=== PATIENT | female | born 1955 | race Caucasian/White ===

== ENCOUNTER 2018-05-03 15:44 | Emergency (ER) ==
[2018-05-03 15:50] VITALS: BP 221/117; TEMP 98.2; BMI 28.3
--- NOTE | 2018-05-03 15:54 | ED.PDOC ---
General ED Provider: Dr. RACHEL GALARZA Chief Complaint: Shortness of Air Stated Complaint: Shortness of breath and chest pain. Having trouble taking full breath; Pain sharp and stabbing. States had similar problem in [facility] 2 weeks ago and required ER treatment then. Dx COPD /Reflux. Was here on vacation with her daughter Time Seen by Physician: 15:45 Mode of Arrival: Walk-In Information Source: Patient Exam Limitations: Clinical condition Nursing and Triage Documentation Reviewed and Agree: Yes Does patient meet sepsis criteria?: No System Inflammatory Response Syndrome: Not Applicable Sepsis Protocol: For patient's 13 years and over: Temp is 96.8 and below OR 101 and greater Pulse >90 BPM Resp >20/minute Acutely Altered Mental Status Are patient's symptoms suggestive of a new infection, such as: -Pneumonia -Skin, Soft Tissue -Endocarditis -UTI -Bone, Joint Infection -Implantable Device -Acute Abdominal Infection -Wound Infection -Meningitis -Blood Stream Catheter Infection -Unknown Respiratory Complaint Exam - Shortness of Air Complaint/Exam Symptoms Are: Still present Timing: Constant Initial Severity: Moderate Current Severity: Moderate Character: Reports: Dyspnea on exertion Aggravating: Reports: Movement, Deep breaths Alleviating: Reports: None Associated Signs and Symptoms: Reports: Wheezing, Chest pain with cough, Chest pain, Rapid breathing, Labored breathing Related History: Reports: Similar episode Pulmonary Embolism Risk Factors: Reports: None Cardiac Risk Factors: Reports: None Pseudomonas Risk Factors: Reports: None Tuberculosis Risk Factors: Reports: None Home Oxygen Use: No Home Peak Flow: Recent personal best Recent Stress Test: No Recent Echo/LV Function: No Respiratory Distress: Mild Stridor Present: No Tracheal Deviation: No Subcutaneous Emphysema: No Accessory Muscle Use: No Diminished Breath Sounds: Yes (bibasilar regions) Prolonged Expiratory Phase: No Unable to Speak Full Sentences: No Fatigue: Yes Leg Swelling: No Morgan's Sign Present: No Grunting Respirations: No Kussmaul Respirations: No Review of Systems - Review Of Systems Constitutional: Reports: No symptoms, Weakness Eyes: Reports: No symptoms Ears, Nose, Mouth, Throat: Reports: No symptoms Respiratory: Reports: No symptoms, Short of air, Wheezing Cardiac: Reports: No symptoms GI: Reports: No symptoms : Reports: No symptoms Musculoskeletal: Reports: No symptoms, Muscle pain, Neck pain Skin: Reports: No symptoms Neurological: Reports: No symptoms Endocrine: Reports: No symptoms Hematologic/Lymphatic: Reports: No symptoms All Other Systems: Reviewed and Negative Past Medical History - Past Medical History Previously Healthy: No Endocrine: Reports: None Cardiovascular: Reports: None Respiratory: Reports: COPD Hematological: Reports: None Gastrointestinal: Reports: None Genitourinary: Reports: None Neuro/Psych: Reports: None Musculoskeletal: Reports: Back Pain, Joint Pain Cancer: Reports: None Last Menstrual Period: N/A - Surgical History General Surgical History: Reports: Unknown - Family History Family History: Reports: Unknown - Social History Smoking Status: Never smoker Hx Substance Use: No Alcohol Screening: None - Immunizations Tetanus Shot up to Date: Yes Physical Exam - Physical Exam Appearance: Ill-appearing Ill-appearing: Moderate Pain Distress: Mild Eyes: ARUNA, EOMI, Conjunctiva clear ENT: Ears normal, Nose normal, Oropharynx normal Neck: Supple Respiratory: Airway patent, Breath sounds clear, Breath sounds equal, Respirations nonlabored Cardiovascular: RRR, Pulses normal, No rub, No murmur GI/: Soft, Nontender, No masses, Bowel sounds normal, No Organomegaly Musculoskeletal: Normal strength, ROM intact, No edema, No calf tenderness Skin: Warm, Dry, Normal color Neurological: Sensation intact, Motor intact, Reflexes intact, Cranial nerves intact, Alert, Oriented Psychiatric: Affect appropriate, Mood appropriate, Anxious Interpretation - Radiology Interpretation Radiology Interpretation By: Radiologist Radiology Results: No acute changes Exam Interpreted: CT Scan Re-Evaluation - Re-Evaluation Time of Re-Evaluation: 18:25 Status: Improved Vital Signs Stable: Yes Appearance: NAD Lungs: Clear Skin: Warm and Dry Neuro: Alert and Oriented X3 CV: RRR Critical Care Note - Critical Care Note Total Time (mins): 60 Course - Course Hematology/Chemistry: 05/03/18 16:42 05/03/18 16:42 Orders, Labs, Meds: Lab Review 05/03/18 05/03/18 16:42 16:42 WBC 11.56 H RBC 4.76 Hgb 12.5 Hct 39.0 MCV 81.9 MCH 26.3 L MCHC 32.1 RDW Coeff of [place] 14.0 Plt Count 296 Immature Gran % (Auto) 0.3 Neut % (Auto) 77.7 Lymph % (Auto) 14.3 Barry % (Auto) 5.9 Eos % (Auto) 1.2 Baso % (Auto) 0.6 Immature Gran # (Auto) 0.0 Neut # (Auto) 9.0 H Lymph # (Auto) 1.7 Barry # (Auto) 0.7 Eos # (Auto) 0.1 Baso # (Auto) 0.1 Sodium 138 Potassium 3.9 Chloride 105 Carbon Dioxide 22 L Anion Gap 14.9 BUN 15 Creatinine 0.77 Estimated GFR (MDRD) 76.00 BUN/Creatinine Ratio 19.48 Glucose 129 H Calcium 8.9 Total Bilirubin 0.4 AST 53 H ALT 76 Alkaline Phosphatase 131 Total Protein 9.1 H Albumin 3.5 Globulin 5.6 Albumin/Globulin Ratio 0.63 Orders Category Date Time Status EKG-(ED ONLY) Stat CARDIO 05/03/18 16:16 Completed NEBULIZER TREATMENT Stat CARDIO 05/03/18 17:47 Completed NPO REMINDER: IMAGING ONCE CARE 05/03/18 16:20 Completed IV [ED IV/MEDIPORT/POWERPORT] .ONCE EMERGENCY 05/03/18 16:16 Active CBC W/ AUTO DIFF Stat LAB 05/03/18 16:42 Completed CMP [COMPREHENSIVE METABOLIC PANEL] Stat LAB 05/03/18 16:42 Completed 0.9 % Sodium Chloride [Saline Flush] MEDS 05/03/18 16:19 Active 1 syr IVF PRN PRN Albuterol Sulfate 0.083% Neb [Albuterol 0.083% Neb] MEDS 05/03/18 16:04 Discontinued 1 vial NEB ONCE STA Dexamethasone 4 mg/ml Inj [Decadron 4 mg/ml Sdv] MEDS 05/03/18 17:46 Discontinued 4 mg IVP ONCE STA Ipratropium/Albuterol Neb [Duoneb] MEDS 05/03/18 17:46 Discontinued 1 vial NEB ONCE STA Lorazepam [Ativan] MEDS 05/03/18 16:23 Discontinued 0.5 mg IVP ONCE STA Mag-Al Plus//Lidocaine [Gi Cocktail] MEDS 05/03/18 16:25 Discontinued 30 ml PO ONCE STA Morphine Sulfate [Morphine 2 mg/ml Syringe] MEDS 05/03/18 17:48 Discontinued 4 mg .ROUTE .STK-MED ONE Morphine Sulfate [Morphine 4 mg/ml Vial] MEDS 05/03/18 17:45 Discontinued 4 mg IVP ONCE STA Ondansetron HCl/Pf [Zofran 4 mg/2 ml] MEDS 05/03/18 16:24 Discontinued 4 mg IVP ONCE STA Pantoprazole Sodium [Protonix IV] MEDS 05/03/18 16:22 Discontinued 40 mg IVP ONCE STA CTA ANGIO CHEST Stat RADS 05/03/18 16:19 Completed Medications Generic Name Dose Route Start Last Admin Trade Name Freq PRN Reason Stop Dose Admin Sodium Chloride 1 syr 05/03/18 16:19 05/03/18 17:55 Saline Flush IVF 1 syr PRN PRN Administration To flush IV Discontinued Medications Generic Name Dose Route Start Last Admin Trade Name Freq PRN Reason Stop Dose Admin Al Hydroxide/Mg Hydroxide 30 ml 05/03/18 16:25 05/03/18 16:39 Gi Cocktail PO 05/03/18 16:26 30 ml ONCE STA Administration Albuterol Sulfate 1 vial 05/03/18 16:04 05/03/18 16:05 Albuterol 0.083% [facility] 05/03/18 16:05 1 vial ONCE STA Administration Albuterol/Ipratropium 1 vial 05/03/18 17:46 05/03/18 18:18 Duoneb NEB 05/03/18 17:47 1 vial ONCE STA Administration Dexamethasone Sodium Phosphate 4 mg 05/03/18 17:46 05/03/18 17:51 Decadron 4 Mg/Ml Sdv IVP 05/03/18 17:47 4 mg ONCE STA Administration Lorazepam 0.5 mg 05/03/18 16:23 05/03/18 16:39 Ativan IVP 05/03/18 16:24 0.5 mg ONCE STA Administration Morphine Sulfate 4 mg 05/03/18 17:45 05/03/18 17:55 Morphine 4 Mg/Ml Vial IVP 05/03/18 17:46 Not Given ONCE STA Ondansetron HCl 4 mg 05/03/18 16:24 05/03/18 16:39 Zofran 4 Mg/2 Ml IVP 05/03/18 16:25 4 mg ONCE STA Administration Pantoprazole Sodium 40 mg 05/03/18 16:22 05/03/18 16:39 Protonix Iv IVP 05/03/18 16:23 40 mg ONCE STA Administration Vital Signs: Temp Pulse Resp BP Pulse Ox 05/03/18 15:46 98.2 F 101 H 16 221/117 H 99 Departure - Departure Time of Disposition: 18:30 Disposition: HOME SELF-CARE Discharge Problem: COPD (chronic obstructive pulmonary disease), Chest wall pain Instructions: COPD (Chronic Obstructive Pulmonary Disease) (ED), Chest Wall Pain (ED) Condition: Fair Pt referred to PMD for follow-up: Yes (See PMD next week upon returning to [place]) IPMP verified?: No Additional Instructions: Take meds as prescribed Avoid strenuous activities IF symptoms worsen return to closest ER Prescriptions: Cyclobenzaprine HCl [Flexeril] 10 mg PO TID #30 tablet Hydrocodone/Acetaminophen [[place] 7.5-325 Tablet] 1 each PO Q4-6H PRN #20 tablet PRN Reason: severe musculoskeletal pain Ipratropium/Albuterol Neb [Duoneb] 1 vial NEB RTQ6H #40 vial.neb Ketorolac Tromethamine [Toradol] 10 mg PO Q6H PRN #20 tablet PRN Reason: chest wall pain Allergies/Adverse Reactions: Allergies No Known Allergies Allergy (Unverified 05/03/18 15:50) Home Medications: Ambulatory Orders Cyclobenzaprine HCl [Flexeril] 10 mg PO TID #30 tablet 05/03/18 Hydrocodone/Acetaminophen [[place] 7.5-325 Tablet] 1 each PO Q4-6H PRN #20 tablet 05/03/18 Ipratropium/Albuterol Neb [Duoneb] 1 vial NEB RTQ6H #40 vial.neb 05/03/18 Ketorolac Tromethamine [Toradol] 10 mg PO Q6H PRN #20 tablet 05/03/18 Additional Information: Family present (daughter) who states patient normally has moderate COPD and shortness or breath Patient states she traveled to area from [place] without her meds Daughter states if prescribed will go to pharmacy to obtain meds Discussed admission but appears patient at baseline for her condition and Patient insistent in leaving as she states she has to travel with her family back to [place] tomorrow
[2018-05-03] MEDS ORDERED: ALBUTEROL 0.083% NEB NEB STA (16:04)
[2018-05-03] MEDS ORDERED: PROTONIX IV IVP STA (16:22)
[2018-05-03] MEDS ORDERED: ATIVAN IVP STA (16:23)
[2018-05-03] MEDS ORDERED: ZOFRAN 4 MG/2 ML IVP STA (16:24)
[2018-05-03] MEDS ORDERED: GI COCKTAIL PO STA (16:25)
[2018-05-03] MEDS ORDERED: MORPHINE 4 MG/ML VIAL IVP STA (17:45)
[2018-05-03] MEDS ORDERED: DECADRON 4 MG/ML SDV IVP STA (17:46)
[2018-05-03] MEDS ORDERED: DUONEB NEB STA (17:46)
[2018-05-03] MEDS ORDERED: MORPHINE 2 MG/ML SYRINGE ONE ×2 (17:48→17:52)
--- NOTE | 2018-05-03 18:07 | CT ---
EXAM: CTA chest HISTORY: Severe generalize chest and back pain with history of chronic obstructive pulmonary disease. COMPARISON: None TECHNIQUE: CTA of the chest was performed from the lung apices to the upper abdomen after IV contras t was administered using PE protocol. 3-D imaging was also provided. FINDINGS: There is no filling defect in the central pulmonary arteries. The heart is normal without signs of ventricular strain. The aorta demonstrates no aneurysm, dissection or stenosis. Branches off the aorta are unremarkable. The thyroid is unremarkable. There are scattered mediastinal and hil ar lymph nodes which are nonpathologically enlarged. No axillary lymph nodes are present. There is no pneumothorax or pleural effusion. There is a 0.2 cm ground-glass nodule in the right robert g base on image 73. There is mild bibasilar atelectasis. The airways are patent. Soft tissues in the upper abdomen demonstrate a prior cholecystectomy. The osseous structures are unr emarkable. IMPRESSION: 1. No central pulmonary embolism and no acute abnormality of the aorta. The 2. Minimal bibasilar atelectasis with a 0.2 cm ground-glass nodule right lung base likely postinflam matory.
== END 2018-05-03 18:44 | disposition home or self-care (01) ==
LOC: ED 15:44
DX: J44.9 Chronic obstructive pulmonary disease, unspecified (principal); R07.89 Other chest pain
CPT/HCPCS: 36415; 80053; 85025; 93005; 93010; 94640; 96374; 96375; 99284